=== PATIENT | female | born 1935 | race Caucasian/White ===

== ENCOUNTER 2024-12-19 10:49 | Emergency (ER) | payer OTHER ==
[~2024-12-19] VITALS: Ht 167.6 cm; Wt 69.4 kg
[~2024-12-19 10:49] MED LIST: LOSA1TAB42 PO; METF-446 PO; METO-408 PO; MULT-952 PO; NAPR-1141 PO; SITA100T12 PO
[2024-12-19] MEDS: LIDOCAINE 5% TOPICAL PATCH TP ONE (11:34)
[2024-12-19] MEDS: ketOROlac 15MG/ML VIAL (15MG/ML) IM ONE (11:34)
--- NOTE | 2024-12-19 12:15 | HMCIMG ---
CT PELVIS W/O CONTRAST HISTORY: Left hip pain COMPARISON: None TECHNIQUE: Multiple sequential axial images of the pelvis were obtained from the iliac crests through symphysis pubis. Patient was not given contrast through intravenous route. Oral contrast was not given. FINDINGS: There are normal sized pelvic and inguinal lymph nodes. Fecal material seen throughout the colon. Diverticula are seen within the colon consistent with diverticulosis. No ascites is seen. Atherosclerotic changes are present. Pelvic sidewalls are symmetric bilaterally. Bladder is well distended without wall thickening. Left hip prosthesis is seen causing artifact limiting evaluation. There are degenerative changes with joint space narrowing involving the right hip. IMPRESSION: 1. Left hip prosthesis limiting the examination. There is diverticulosis. No acute displaced fracture is seen. CT was performed with one or more following dose reduction techniques: automated exposure control, adjustment of the mA and kv according to patient's size, or use of a iterative reconstruction technique.
[2024-12-19 13:01] VITALS: BP 150/65; PULSE 88; RESP 16; TEMP 98.3; O2SAT 98
--- NOTE | 2024-12-19 13:55 | ERN ---
ED Note History of Present Illness Stated Complaint: LEFT HIP PAIN Chief Complaint: Hip Pain/Injury Time Seen by MD: 11:05 Dictation: 89-year-old female presenting to the emergency department with acute on chronic left hip pain worsening over the past few weeks to months. Patient reports hip replacement one year ago with Dr. Bennett, however patient has been having pain over the past few months worsening these past few weeks difficult to ambulate no urinary retention no focal deficit or fever. Allergies: Coded Allergies: [id number]-[id number] Reductase Inhibitor (Unverified Allergy, Unknown, 09/04/23) Home Meds Reported Medications Multivit with Calcium,Iron,Min (Women's Daily Formula) 27 Mg-0.4 Mg Tablet, 1 EACH PO DAILY, TAB 09/05/23 Naproxen Sodium (Naproxen Sodium) 220 Mg Tablet, 220 MG PO BID, TAB 09/05/23 Sitagliptin Phosphate (Januvia) 100 Mg Tablet, 100 MG PO HS, TAB 09/05/23 Metformin HCl (Metformin HCl) 1,000 Mg Tablet, 1000 MG PO BID, TAB 09/05/23 Losartan/Hydrochlorothiazide (Losartan-Hctz 100-12.5 mg Tab) 100 Mg-12.5 Mg Tablet, 1 EACH PO DAILY, TAB 09/05/23 Metoprolol Succinate (Metoprolol Succinate) 25 Mg Tab.er.24h, 25 MG PO DAILY, TAB 09/05/23 Past Medical History Past Medical History: Diabetes-Type II, High Cholesterol, Hypertension Surgical History: Hysterectomy, Tonsillectomy Surgical History Other: LEFT HIP Review of System Dictation Constitutional: Negative for fever,chills, and weight loss Eyes: Negative for injury, pain,redness, and discharge ENT: Negative for injury,pain or swelling Cardiovascular: Negative for chest pain, palpitations, and edema Respiratory: Negative for shortness of breath, cough, and wheezing, Abdomen/GI: Negative for abdominal pain, nausea, vomiting, diarrhea, and constipation Back: Negative for injury and pain : Negative for injury, bleeding and discharge Per HPI Skin: Negative for rash, and discoloration Neuro: Negative for headache, weakness, numbness, tingling, and seizure Psych: Negative for suicide ideation, homicidal ideation, and hallucinations Initial Vital Sign VS Vital Signs Date Time Temp Pulse Resp B/P (MAP) Pulse Ox O2 Delivery O2 Flow Rate FiO2 12/19/24 10:52 98.4 90 18 154/70 94 0 12/19/24 11:27 Room Air* 21 Physical Exam Dictation General: awake, alert, NAD Head/Face: Normocephalic, atraumatic Eyes: PERRL, EOMI, vision at baseline ENT: oral cavity clear, TMs clear, no signs of infection Neck: Trachea midline, supple, no nuchal rigidity Cardiovascular: RRR, normal S1/S2, No MRGs, no JVD Respiratory: CTAB, no respiratory distress, No rales or wheezes Abdomen: Soft, non-tender, non-distended, normal bowel sounds, no guarding or rebound. Skin: Warm, dry, normal turgor, no rash MS/Extremity: Pulses equal, no cyanosis, neurovascular intact, FROM Neuro: COAx4, GCS 15, strength 5/5, CN 2-12 intact, normal cerebellar exam, normal gait, Psych: Normal behavior, mood, and affect normal ED Course ED Course Orders Procedure Category Date Status Time Ct Pelvis W/O Contrast CT 12/19/24 Resulted 11:24 Lidocaine (Lidoderm PHA 12/19/24 Complete Patch 5%) 11:30 Ketorolac PHA 12/19/24 Complete Tromethamine 15mg/Ml 11:30 Current Medications Medications (Trade) Dose Ordered Sig/Maru Route PRN Reason Start Time Stop Time Status Last Admin Dose Admin Ketorolac Tromethamine (toRADol) 15 mg ONCE ONCE IM 12/19/24 11:30 12/19/24 11:31 DC 12/19/24 11:34 Lidocaine (Lidoderm Patch 5%) 1 patch ONCE ONCE TP 12/19/24 11:30 12/19/24 11:31 DC 12/19/24 11:34 Vital Signs Date Time Temp Pulse Resp B/P (MAP) Pulse Ox O2 Delivery O2 Flow Rate FiO2 12/19/24 13:01 98.2 88 16 150/65 98 Room Air* 0 21 12/19/24 11:27 98.2 90 16 152/70 98 Room Air* 0 21 12/19/24 10:52 98.4 90 18 154/70 94 0 Medical Decision Making MDM MDM: Differential diagnosis: Rationale: Tests considered and ordered secondary to shared decision making include: Previous outside records reviewed: Old ER visits. Risk of complication and/or morbidity or mortality of patient management: None Medications-Per medication reconciliation Need for hospitalization: Patient does not meet criteria for hospitalization. Need for emergency major/minor surgery: No There are no social concerns with this patient. Prescription drug management Prescriptions will include symptomatic care Patient's prior external medical records from other ER visits were reviewed by me as indicated. Prior testing and results from previous visits were reviewed. Prior tests were taken into account with medical decision making and resource utilization, independent historian/historians were used to obtain complete medical history. I independently interpreted the test that were performed, results were reviewed by me and considered findings on radiology if ordered. Medical management and examination interpretation discussions were had by me with other qualified healthcare professionals as indicated for the patient's care. 89-year-old female with hip pain secondary history of total hip replacement, no signs of fever infection CT scan appears stable, no neurological changes or focal deficits stable for outpatient follow up patient was offered admission due to difficulty to ambulate and however patient refused. DX & DISP Disposition: Discharge Departure Impression: Primary Impression: Chronic hip pain after total replacement of left hip joint Condition: Stable Referrals: DAY PEREIRA MD (PCP) CARMEN WINTERS MD Time of Disposition: 13:55 CHRISTEN HOUSTON MD Dec 19, 2024 13:55
== END 2024-12-19 14:07 | disposition home or self-care (01) ==
LOC: EDH 10:49
DX: T84.84XA Pain due to internal orthopedic prosthetic devices, implants and grafts, initial encounter (principal); G89.28 Other chronic postprocedural pain; E11.9 Type 2 diabetes mellitus without complications; E78.00 Pure hypercholesterolemia, unspecified; I10 Essential (primary) hypertension; Z79.84 Long term (current) use of oral hypoglycemic drugs; Z79.899 Other long term (current) drug therapy; Z88.8 Allergy status to other drugs, medicaments and biological substances; Z90.710 Acquired absence of both cervix and uterus; Z96.642 Presence of left artificial hip joint; X58.XXXA Exposure to other specified factors, initial encounter
CPT/HCPCS: 99284; 72192; 96372; J1885